=== PATIENT | female | born 1955 | race Caucasian/White ===

== ENCOUNTER 2017-06-05 12:21 | Emergency (ER) | payer BC ==
[2017-06-05] MEDS ORDERED: Ondansetron INJ* 2 MG/ML VIAL IV ONE (13:47)
[2017-06-05 14:18] LABS: Add Diff/Slide Review? Slide Review Added; Comments Flag Yes; Hematocrit 49 % (35-47); Hemoglobin 16.4 g/dl (12.0-16.0); Mean Corpuscular HGB Conc 34 g/dl (31-36); Mean Corpuscular Hemoglobin 29 pg (27-31); Mean Corpuscular Volume 86 fL (80-97); Mean Platelet Volume 7 um3 (7.4-10.4); Red Cell Distribution Width 13 % (10.5-15); White Blood Count 24.7 10^3/ul (3.5-10.8)
[2017-06-05 14:33] LABS: ALT 13 U/L (7-52); AST 18 U/L (13-39); Albumin 3.3 g/dL (3.2-5.2); Alkaline Phosphatase 51 U/L (34-104); Anion Gap 13 mmol/L (2-11); BUN/Creatinine Ratio 20.8 (8-20); Blood Urea Nitrogen 33 mg/dL (6-24); C Reactive Protein 250.05 mg/L (< 5.00); CO2 Carbon Dioxide 24 mmol/L (22-32); Chloride 96 mmol/L (101-111); EGFR African American 42.2 (>60); EGFR Non-African American 32.8 (>60); Glucose 137 mg/dL (70-100); Lipase < 10 U/L (11.0-82.0); Magnesium 1.8 mg/dL (1.9-2.7); Potassium 3.6 mmol/L (3.5-5.0); Sodium 133 mmol/L (133-145); Total Protein 6.3 g/dL (6.4-8.9)
[2017-06-05] MEDS: NS 0.9% 1000 ML* 2,000 ML IV ONE (14:48)
[2017-06-05] MEDS ORDERED: Iodixanol* (CONTRAST) 320 MG/ML 100 ML SDV IV ONE (16:13)
--- NOTE | 2017-06-05 16:51 | RAD ---
CLINICAL HISTORY: Left lower quadrant pain and emesis COMPARISON: None TECHNIQUE: Contrast enhanced CT examination of the abdomen and pelvis from the lung bases through the initial tuberosities. The patient received 85 mL Visipaque 320 intravenously prior to imaging.The patient received oral contrast as well prior to imaging. FINDINGS: VISUALIZED LUNG BASES: At the bilateral dependent portions of the lower lobes there are pleural-based linear densities. More superiorly the lungs are adequately aerated. There are small bibasilar pleural effusions. ABDOMEN AND PELVIS: The liver, spleen, pancreas and adrenal glands are grossly normal in appearance. The gallbladder is top normal in diameter measurement measuring 4.4 cm. Otherwise the gallbladder is normal in appearance. The kidneys are normal in appearance without focal mass, calcification or signs of hydronephrosis. The oral contrast as progressed as far as the rectum. The small and large bowel are not distended. There are rectosigmoid diverticula but no focal inflammatory change of the sigmoid colon. There is widespread peritoneal ascites including perihepatic fluid and perisplenic fluid. In addition to ascites scattered in the pelvis there is soft tissue density of the mesenteric fat consistent with the appearance of "omental caking". At the right of midline lower abdomen there is a partially cystic coarsely solid mass with enhancing components measuring approximately 8.6 x 9.8 cm in the axial plane and 9.3 cm in the cephalocaudal projection. The uterus is questionably identified in the sagittal plane with an AP dimension of 3.2 cm (sagittal image 76). Mixed attenuation tissue fills much of the pelvis. At the left inguinal ligament there is partially fluid partially soft tissue mass extending into the proximal portion of the ligament abutting the subcutaneous fat. The abdominal aorta and iliac arteries are normal in course and diameter. Degenerative changes include multilevel loss of intervertebral disc height involving the lower thoracic and lumbar spine.There are no sinister bone lesions. IMPRESSION: 1. The constellation of findings described above is most concerning for gynecologic malignancy, most likely ovarian, with widespread ascites and omental caking. 2. Although much of the gastrointestinal tract is surrounded by ascites and soft tissue density there are no pathologically dilated loops of bowel.
[2017-06-05 16:59] LABS: Urine Bacteria Absent (Absent); Urine Bilirubin 2+ (Negative); Urine Glucose 1+(50 mg/dL) (Negative); Urine Nitrite Negative (Negative)
--- NOTE | 2017-06-05 17:55 | ED ---
Kathi Cazares Edward, scribed for Cliff Wallis MD on 06/05/17 at 1338 . Abdominal Pain/Female - HPI Summary HPI Summary: 62 y/o female presents to the ED c/o diffuse ABD pain, mostly on the L side, starting 2 weeks ago. Pt states the pain is more of a discomfort now. Pt also c/ o ABD bloating. The pain is aggravated with food and water. Associated sx: severe N/V starting five days ago, decreased appetite, dehydrated, subjective fever and chills, intermittent fecal incontinence and diarrhea. No Sx. Pt was seen at PCP and given abx with no relief. PMHx HTN, HLD, asthma. - History of Current Complaint Chief Complaint: EDAbdPain Stated Complaint: DEHYDRATION,ABD PAIN LT SIDE Time Seen by Provider: 06/05/17 13:37 Hx Obtained From: Patient Onset/Duration: Lasting Days Timing: Constant Severity Currently: Moderate Pain Intensity: 6 Pain Scale Used: 0-10 Numeric Location: Diffuse - mostly on L side Character: Other: - discomfort now Aggravating Factor(s): Food Alleviating Factor(s): Nothing Associated Signs and Symptoms: Positive: Fever - subjective fever and chills, Decreased Appetite, Nausea, Vomiting, Diarrhea, Other: - dehydrated, fecal incontinence Allergies/Adverse Reactions: Allergies Allergy/AdvReac Type Severity Reaction Status Date / Time No Known Allergies Allergy Verified 06/05/17 12:37 PMH/Surg Hx/FS Hx/Imm Hx Previously Healthy: No Endocrine/Hematology History: Reports: Other Endocrine/Hematological Disorders - HLD Denies: Hx Diabetes Cardiovascular History: Reports: Hx Hypertension Respiratory History: Reports: Hx Asthma - Surgical History Surgery Procedure, Year, and Place: No ABD surgeries Infectious Disease History: No Infectious Disease History: Denies: Traveled Outside the [place] in Last 30 Days - Family History Known Family History: Negative: Cardiac Disease, Hypertension, Diabetes - Social History 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 Lives: With Family Review of Systems Positive: Fever - subjective, Chills - subjective, Other - dehydrated, decreased appetite Eyes: Negative ENT: Negative Cardiovascular: Negative Respiratory: Negative Positive: Abdominal Pain, Vomiting, Diarrhea, Nausea, Other - fecal incontinence Genitourinary: Negative Musculoskeletal: Negative Skin: Negative Neurological: Negative Psychological: Normal All Other Systems Reviewed And Are Negative: Yes Physical Exam Triage Information Reviewed: Yes Vital Signs On Initial Exam: Initial Vitals Temp Pulse Resp BP Pulse Ox 97.7 F 120 16 145/100 96 06/05/17 12:31 06/05/17 12:31 06/05/17 12:31 06/05/17 12:31 06/05/17 12:31 Vital Signs Reviewed: Yes Appearance: Positive: Well-Appearing, No Pain Distress Skin: Positive: Warm, Skin Color Reflects Adequate Perfusion, Dry Head/Face: Positive: Normal Head/Face Inspection Eyes: Positive: EOMI, [place] ENT: Positive: Other - oral mucosa dry Neck: Positive: Supple, Nontender Respiratory/Lung Sounds: Positive: Clear to Auscultation, Breath Sounds Present Cardiovascular: Positive: Tachycardia Abdomen Description: Positive: Nontender, Soft Bowel Sounds: Positive: Present Musculoskeletal: Positive: Normal, Strength/ROM Intact Neurological: Positive: Normal, Sensory/Motor Intact, Alert, Oriented to Person Place, Time Psychiatric: Positive: Affect/Mood Appropriate Diagnostics - Vital Signs Vital Signs Temp Pulse Resp BP Pulse Ox 06/05/17 12:31 97.7 F 120 16 145/100 96 - Laboratory Lab Results: Lab Results 06/05/17 06/05/17 06/05/17 Range/Units 14:05 14:05 14:05 WBC 24.7 H (3.5-10.8) 10^3/ul RBC 5.70 H (4.0-5.4) 10^6/ul Hgb 16.4 H (12.0-16.0) g/dl Hct 49 H (35-47) % MCV 86 (80-97) fL MCH 29 (27-31) pg MCHC 34 (31-36) g/dl RDW 13 (10.5-15) % Plt Count 511 H (150-450) 10^3/ul MPV 7 L (7.4-10.4) um3 Neut % (Auto) 87.9 H (38-83) % Lymph % (Auto) 4.7 L (25-47) % [place] % (Auto) 7.1 (1-9) % Eos % (Auto) 0.1 (0-6) % Baso % (Auto) 0.2 (0-2) % Absolute Neuts (auto) 21.8 H (1.5-7.7) 10^3/ul Absolute Lymphs (auto) 1.2 (1.0-4.8) 10^3/ul Absolute Monos (auto) 1.8 H (0-0.8) 10^3/ul Absolute Eos (auto) 0 (0-0.6) 10^3/ul Absolute Basos (auto) 0 (0-0.2) 10^3/ul Absolute Nucleated RBC 0.01 10^3/ul Nucleated RBC % 0 INR (Anticoag Therapy) 1.37 H (0.89-1.11) APTT 30.0 (26.0-36.3) seconds Sodium 133 (133-145) mmol/L Potassium 3.6 (3.5-5.0) mmol/L Chloride 96 L (101-111) mmol/L Carbon Dioxide 24 (22-32) mmol/L Anion Gap 13 H (2-11) mmol/L BUN 33 H (6-24) mg/dL Creatinine 1.59 H (0.51-0.95) mg/dL Est GFR ( Amer) 42.2 (>60) Est GFR (Non-Af Amer) 32.8 (>60) BUN/Creatinine Ratio 20.8 H (8-20) Glucose 137 H (70-100) mg/dL Lactic Acid (0.5-2.0) mmol/L Calcium 9.0 (8.6-10.3) mg/dL Magnesium 1.8 L (1.9-2.7) mg/dL Total Bilirubin 0.40 (0.2-1.0) mg/dL AST 18 (13-39) U/L ALT 13 (7-52) U/L Alkaline Phosphatase 51 (34-104) U/L C-Reactive Protein 250.05 H (< 5.00) mg/L Total Protein 6.3 L (6.4-8.9) g/dL Albumin 3.3 (3.2-5.2) g/dL Globulin 3.0 (2-4) g/dL Albumin/Globulin Ratio 1.1 (1-3) Lipase < 10 L (11.0-82.0) U/L Urine Color Urine Appearance Urine pH (5-9) Ur Specific [place] (1.010-1.030) Urine Protein (Negative) Urine Ketones (Negative) Urine Blood (Negative) Urine Nitrate (Negative) Urine Bilirubin (Negative) Urine Urobilinogen (Negative) Ur Leukocyte Esterase (Negative) Urine WBC (Auto) (Absent) Urine RBC (Auto) (Absent) Ur Squamous Epith Cells (Absent) Calcium Oxalate Crystal (Absent) Urine Bacteria (Absent) Urine Glucose (Negative) 06/05/17 06/05/17 Range/Units 14:05 15:50 WBC (3.5-10.8) 10^3/ul RBC (4.0-5.4) 10^6/ul Hgb (12.0-16.0) g/dl Hct (35-47) % MCV (80-97) fL MCH (27-31) pg MCHC (31-36) g/dl RDW (10.5-15) % Plt Count (150-450) 10^3/ul MPV (7.4-10.4) um3 Neut % (Auto) (38-83) % Lymph % (Auto) (25-47) % [place] % (Auto) (1-9) % Eos % (Auto) (0-6) % Baso % (Auto) (0-2) % Absolute Neuts (auto) (1.5-7.7) 10^3/ul Absolute Lymphs (auto) (1.0-4.8) 10^3/ul Absolute Monos (auto) (0-0.8) 10^3/ul Absolute Eos (auto) (0-0.6) 10^3/ul Absolute Basos (auto) (0-0.2) 10^3/ul Absolute Nucleated RBC 10^3/ul Nucleated RBC % INR (Anticoag Therapy) (0.89-1.11) APTT (26.0-36.3) seconds Sodium (133-145) mmol/L Potassium (3.5-5.0) mmol/L Chloride (101-111) mmol/L Carbon Dioxide (22-32) mmol/L Anion Gap (2-11) mmol/L BUN (6-24) mg/dL Creatinine (0.51-0.95) mg/dL Est GFR ( Amer) (>60) Est GFR (Non-Af Amer) (>60) BUN/Creatinine Ratio (8-20) Glucose (70-100) mg/dL Lactic Acid 3.4 H* (0.5-2.0) mmol/L Calcium (8.6-10.3) mg/dL Magnesium (1.9-2.7) mg/dL Total Bilirubin (0.2-1.0) mg/dL AST (13-39) U/L ALT (7-52) U/L Alkaline Phosphatase (34-104) U/L C-Reactive Protein (< 5.00) mg/L Total Protein (6.4-8.9) g/dL Albumin (3.2-5.2) g/dL Globulin (2-4) g/dL Albumin/Globulin Ratio (1-3) Lipase (11.0-82.0) U/L Urine Color [place] Urine Appearance Turbid Urine pH 5.0 (5-9) Ur Specific [place] 1.029 (1.010-1.030) Urine Protein 2+(100 mg/dl) H (Negative) Urine Ketones Trace H (Negative) Urine Blood Negative (Negative) Urine Nitrate Negative (Negative) Urine Bilirubin 2+ H (Negative) Urine Urobilinogen Negative (Negative) Ur Leukocyte Esterase 2+ H (Negative) Urine WBC (Auto) 3+(>20/hpf) H (Absent) Urine RBC (Auto) Absent (Absent) Ur Squamous Epith Cells Present H (Absent) Calcium Oxalate Crystal Present H (Absent) Urine Bacteria Absent (Absent) Urine Glucose 1+(50 mg/dl) H (Negative) Result Diagrams: 06/05/17 14:05 06/05/17 14:05 Lab Statement: Any lab studies that have been ordered have been reviewed, and results considered in the medical decision making process. - CT ABD/PEL CT CT Interpretation: Positive (See Comments) - 1. The constellation of findings described above is most concerning for gynecologic malignancy, most likely ovarian, with widespread ascites and omental caking. 2. Although much of the gastrointestinal tract is surrounded by ascites and soft tissue density there are no pathologically dilated loops of bowel. CT Interpretation Completed By: Radiologist - ED PHYSICIAN REVIEWS AND AGREES Abdominal Pain Fem Course/Dx - Course Course Of Treatment: DISCUSSED RESULTS WITH DR BROWN AND THE PATIENT. PATIENT DECLINES ADMISSION. DR BROWN AGREED TO MEET WITH THE PATIENT IN HIS OFFICE TOMORROW, 06/06/17, AT 5PM. F/U DR BROWN AND PMD; RETURN IF WORSE. - Diagnoses Provider Diagnoses: Abdominal pain, Dehydration, Nausea vomiting and diarrhea, Abdominal mass - Provider Notifications Discussed Care Of Patient With: Gurpreet Brown Time Discussed With Above Provider: 17:30 Discharge - Discharge Plan Condition: Stable Disposition: HOME Patient Education Materials: Dehydration (ED), Acute Nausea and Vomiting (ED), Acute Diarrhea (ED), Abdominal Pain (ED) Referrals: Christiana Austin MD [Primary Care Provider] - Additional Instructions: FOLLOW UP DR BROWN, HEMATOLOGY/ONCOLOGY. CALL EARLY TOMORROW MORNING TO ARRANGE THE APPOINTMENT. DR BROWN SAID HE COULD SEE YOU IN HIS OFFICE AT 5PM TOMORROW. YOUR STOOL RESULTS ARE PENDING. DISCUSS THESE RESULTS WITH DR BROWN. CONTINUE THE FLAGYL DIRECTED. RETURN TO THE EMERGENCY DEPARTMENT FOR ANY WORSENING OF YOUR CONDITION; PAIN, VOMITING, DEHYDRATION, YOU FEEL ILL OR QUESTIONS OR CONCERNS. The documentation as recorded by the Kathi boggs Edward accurately reflects the service I personally performed and the decisions made by me, Cliff Wallis MD.
[2017-06-05 18:12] VITALS: BP 132/88
== END 2017-06-05 16:45 | disposition home or self-care (01) ==
LOC: ED 12:21
DX: R10.84 Generalized abdominal pain (principal); E86.0 Dehydration; R11.2 Nausea with vomiting, unspecified; R19.7 Diarrhea, unspecified; R50.9 Fever, unspecified; R19.03 Right lower quadrant abdominal swelling, mass and lump; K57.30 Diverticulosis of large intestine without perforation or abscess without bleeding; E78.5 Hyperlipidemia, unspecified; I10 Essential (primary) hypertension; J45.909 Unspecified asthma, uncomplicated
CPT/HCPCS: 36415; 74177; 80053; 81003; 81015; 82270; 83605; 83630; 83690; 83735; 85025; 85610; 85730; 86140; 86304; 87040; 87086; 87493; 96361; 96374; 99283; J2405; Q9967

== ENCOUNTER 2017-06-09 16:56 | Inpatient (IN) | payer BC ==
[2017-06-09 18:11] LABS: Hematocrit 49 % (35-47); Hemoglobin 16.5 g/dl (12.0-16.0); Mean Corpuscular HGB Conc 34 g/dl (31-36); Mean Corpuscular Hemoglobin 29 pg (27-31); Mean Corpuscular Volume 85 fL (80-97); Mean Platelet Volume 7 um3 (7.4-10.4); Red Blood Count 5.78 10^6/ul (4.0-5.4); Red Cell Distribution Width 13 % (10.5-15); White Blood Count 35.4 10^3/ul (3.5-10.8)
[2017-06-09 18:12] LABS: Add Diff/Slide Review? Slide Review Added; Comments Flag Yes
[2017-06-09 18:20] LABS: Albumin 3.1 g/dL (3.2-5.2); BUN/Creatinine Ratio 12.8 (8-20); Calcium 9.4 mg/dL (8.6-10.3); EGFR African American 12.4 (>60); EGFR Non-African American 9.6 (>60); Potassium 4.3 mmol/L (3.5-5.0); Total Bilirubin 0.4 mg/dL (0.2-1.0); Total Protein 6.1 g/dL (6.4-8.9)
[2017-06-09 18:33] LABS: Immature Granulocytes 12 % (0-9); Metamyelocytes % 2 % (0-2); Neutrophil % 80 % (38-83); RBC Morphology Normal (Normal)
[2017-06-09] MEDS ORDERED: Morphine INJ* 4 MG/ML 1 ML CARPUJECT IV ONE ×2 (19:46→21:51)
[2017-06-09] MEDS ORDERED: Metoclopramide IV* 5 MG/ML 2 ML VIAL IV SLOW PU ONE (19:47)
[2017-06-09] MEDS ORDERED: Ondansetron INJ* 2 MG/ML VIAL IV ONE ×2 (20:20→21:51)
[2017-06-09] MEDS ORDERED: Ondansetron INJ* 2 MG/ML VIAL ONE (20:20)
[2017-06-09] MEDS: NS 0.9% 1000 ML* 2,000 ML IV ONE (20:22)
[2017-06-09 20:45] LABS: C Reactive Protein 380.93 mg/L (< 5.00)
[2017-06-09 21:11] LABS: PCO2 Arterial 32 mmHg (35-45)
[2017-06-09] MEDS ORDERED: Vancomycin(*) 1,000 MG in NS 0.9% 250 ML* 250 ML IVPB ONE (21:24)
[2017-06-09] MEDS ORDERED: Piperacillin/Tazobac ADVAN(*) 3.375 GM in NS 0.9% 100 ML* 100 ML IVPB ONE (21:24)
--- NOTE | 2017-06-09 21:30 | RAD ---
INDICATION: Vomiting, dehydration and weakness COMPARISON: None. TECHNIQUE: Single AP portable view of the chest was obtained. FINDINGS: Image quality is compromised due to the relative inferiority of a portable chest x-ray. The heart and mediastinum exhibit normal size and contour. There is density obscuring the left hemidiaphragm and costophrenic angle. There is mild costophrenic angle blunting on the right. More superiorly the lungs are adequately aerated. Visualized bones are normal for the patient's age. IMPRESSION: Left greater than right bibasilar pleural effusions and/or consolidation.
--- NOTE | 2017-06-09 21:37 | RAD ---
CLINICAL HISTORY: Abdominal pain in a woman recently diagnosed with ovarian cancer. COMPARISON: CT abdomen pelvis dated June 05, 2017. TECHNIQUE: Noncontrast CT examination of the abdomen and pelvis from the lung bases through the initial tuberosities. FINDINGS: VISUALIZED LUNG BASES: There has been interval increase in the size of the bibasilar pleural effusions, larger on the left than the right. There is compressive atelectasis at the bilateral lung bases with air bronchograms at the medial portion of the left lower lobe. ABDOMEN AND PELVIS: Evaluation of the solid organs and vasculature is limited without intravenous contrast. Similar to the prior CT the abdomen there is peritoneal ascites including perihepatic and perisplenic fluid, slightly increased from the prior CT examination. More inferiorly there is density involving the peritoneal fat diffusely which is most consistent with omental caking. The large mixed attenuation partially cystic mass in the right abdomen is unchanged in size from the previous CT examination. The masses in the abdomen and pelvis are less well depicted relative to the previous CT examination without IV contrast. Otherwise, the liver, spleen, pancreas and adrenal glands are grossly normal in appearance. The gallbladder is normal. The kidneys are normal in appearance without focal mass, calcification or signs of hydronephrosis. Evaluation of the gastrointestinal tract is limited without oral contrast. There is oral contrast seen in the colon presumably from the CT examination 4 days earlier. There is no pathologic dilatation of the small or large bowel. There are numerable rectosigmoid diverticula similar to the prior CT examination. There is no gross retroperitoneal or mesenteric lymphadenopathy. The pelvic viscera is normal in appearance. The abdominal aorta and iliac arteries are normal in course and diameter. Degenerative changes include multilevel loss of intervertebral disc height involving the lower thoracic and lumbar spine.There are no sinister bone lesions. IMPRESSION: 1. There has been interval increase in the size of the bilateral pleural effusions and peritoneal ascites. 2. Again seen is partially cystic mixed attenuation mass in the right abdomen and pelvis similar in size to the prior CT examination. The mass is less well evaluated on this noncontrast CT examination relative to the prior CT examination.
--- NOTE | 2017-06-09 21:54 | ED ---
Sudha Cazares SooYoung, scribed for Tommy Fowler MD on 06/09/17 at 1927 . GI/ HPI - HPI Summary HPI Summary: A 62 y/o F presents to ED with c/o diffuse abd pain onset a few weeks ago at the beginning of May. Pt last seen in ED on 06/05/[address], dx: Stage III Ovarian CA. She met with an oncologist on 06/06 and had a biopsy on 06/07. Associated sx: nausea, decreased oral intake, dyspnea onset 2-3 days ago, weakness. Denies diarrhea. She denies taking any medications at home. 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 - History of Current Complaint Chief Complaint: EDNauseaVomitDiarrh Time Seen by Provider: 06/09/17 19:24 Stated Complaint: VOMITING,DEHYDRATION,WEAKNESS Hx Obtained From: Patient Onset/Duration: Started Weeks Ago, Still Present Current Severity: Moderate Pain Intensity: 6 - out of 10 Location of Pain: Diffuse Associated Signs and Symptoms: Positive: Nausea, Abdominal Pain - diffuse, Other : - pos: decreased oral intake, dyspnea. Negative: Diarrhea - Allergy/Home Medications Allergies/Adverse Reactions: Allergies Allergy/AdvReac Type Severity Reaction Status Date / Time Ciprofloxacin AdvReac Intermediate Vomiting Verified 06/07/17 14:29 Codeine AdvReac Intermediate Vomiting Verified 06/07/17 14:29 PMH/Surg Hx/FS Hx/Imm Hx Previously Healthy: No Endocrine/Hematology History: Reports: Other Endocrine/Hematological Disorders - HLD Denies: Hx Diabetes Cardiovascular History: Reports: Hx Hypertension Respiratory History: Reports: Hx Asthma History: Denies: Hx Renal Disease - Surgical History Surgery Procedure, Year, and Place: No ABD surgeries Infectious Disease History: No Infectious Disease History: Denies: Traveled Outside the [place] in Last 30 Days - Family History Known Family History: Negative: Cardiac Disease, Hypertension, Diabetes - Social History Occupation: Employed Full-time Lives: Alone Alcohol Use: Occasionally Hx Substance Use: No Substance Use Type: Reports: None Hx Tobacco Use: No Smoking Status (MU): Never Smoked Tobacco Review of Systems Positive: Other - dyspnea Positive: Abdominal Pain - diffuse, Nausea, Other - decreased oral intake. Negative: Diarrhea All Other Systems Reviewed And Are Negative: Yes Physical Exam - Summary Physical Exam Summary: VITAL SIGNS: Reviewed. GENERAL: Patient is an ill-looking FEMALE who appears uncomfortable on the stretcher. Pt is lethargic. Patient is not in any acute respiratory distress. HEAD AND FACE: No signs of trauma. No ecchymosis, hematomas or skull depressions. No sinus tenderness. EYES: PERRLA, EOMI x 2, no injected conjunctiva, no nystagmus. EARS: Hearing grossly intact. Ear canals and tympanic membranes are within normal limits. MOUTH: Oropharynx is within normal limits. NECK: Supple, trachea is midline, no adenopathy, no JVD, no carotid bruit, no c- spine tenderness, neck with full ROM. CHEST: Symmetric, no tenderness at palpation LUNGS: Clear to auscultation bilaterally. No wheezing or crackles. Decreased breath sounds bilaterally. CVS: Tachycardic, S1 and S2 present, no murmurs or gallops appreciated. ABDOMEN: Soft. Abd has diffuse tenderness. No signs of distention. No rebound, no guarding, and no masses palpated. Bowel sounds are normal. EXTREMITIES: FROM in all major joints, no edema, no cyanosis, no clubbing. NEURO: Alert and oriented x 3. No acute neurological deficits. Speech is normal and follows commands. SKIN: Dry and warm Triage Information Reviewed: Yes Vital Signs On Initial Exam: Initial Vitals Temp Pulse Resp BP Pulse Ox 97.9 F 117 22 115/80 93 06/09/17 17:01 06/09/17 17:01 06/09/17 17:01 06/09/17 17:01 06/09/17 17:01 Vital Signs Reviewed: Yes Diagnostics - Vital Signs Vital Signs Temp Pulse Resp BP Pulse Ox 06/09/17 17:01 97.9 F 117 22 115/80 93 - Laboratory Lab Results: Lab Results 06/09/17 06/09/17 06/09/17 Range/Units 17:45 17:45 17:45 WBC 35.4 H (3.5-10.8) 10^3/ul RBC 5.78 H (4.0-5.4) 10^6/ul Hgb 16.5 H (12.0-16.0) g/dl Hct 49 H (35-47) % MCV 85 (80-97) fL MCH 29 (27-31) pg MCHC 34 (31-36) g/dl RDW 13 (10.5-15) % Plt Count 619 H D (150-450) 10^3/ul MPV 7 L (7.4-10.4) um3 Immature Gran % (Auto) 12 H (0-9) % Neut % (Auto) 89.9 H (38-83) % Lymph % (Auto) 3.5 L (25-47) % [place] % (Auto) 6.4 (1-9) % Eos % (Auto) 0 (0-6) % Baso % (Auto) 0.2 (0-2) % Absolute Neuts (auto) 31.8 H (1.5-7.7) 10^3/ul Absolute Lymphs (auto) 1.3 (1.0-4.8) 10^3/ul Absolute Monos (auto) 2.3 H (0-0.8) 10^3/ul Absolute Eos (auto) 0 (0-0.6) 10^3/ul Absolute Basos (auto) 0.1 (0-0.2) 10^3/ul Absolute Nucleated RBC 0.02 10^3/ul Neutrophils % 80 (38-83) % Band Neutrophils % 10 H (0-8) % Lymphocytes % 1 L (25-47) % Monocytes % 7 (0-13) % Metamyelocytes % 2 (0-2) % Nucleated RBC % 0.1 Normal RBC Morphology Normal (Normal) INR (Anticoag Therapy) 1.32 H (0.89-1.11) Sodium 126 L (133-145) mmol/L Potassium 4.3 (3.5-5.0) mmol/L Chloride 90 L (101-111) mmol/L Carbon Dioxide 15 L (22-32) mmol/L Anion Gap 21 H (2-11) mmol/L BUN 59 H (6-24) mg/dL Creatinine 4.60 H (0.51-0.95) mg/dL Est GFR ( Amer) 12.4 (>60) Est GFR (Non-Af Amer) 9.6 (>60) BUN/Creatinine Ratio 12.8 (8-20) Glucose 146 H (70-100) mg/dL Calcium 9.4 (8.6-10.3) mg/dL Total Bilirubin 0.40 (0.2-1.0) mg/dL AST 22 (13-39) U/L ALT 8 (7-52) U/L Alkaline Phosphatase 61 (34-104) U/L Total Protein 6.1 L (6.4-8.9) g/dL Albumin 3.1 L (3.2-5.2) g/dL Globulin 3.0 (2-4) g/dL Albumin/Globulin Ratio 1.0 (1-3) Lipase 17 (11.0-82.0) U/L Result Diagrams: 06/09/17 17:45 06/09/17 17:45 Lab Statement: Any lab studies that have been ordered have been reviewed, and results considered in the medical decision making process. - Radiology CXR Xray Interpretation: Positive (See Comments) - IMPRESSION: Left greater than right bibasilar pleural effusions and/or consolidation. ED physician has reviewed this radiology report and agrees. Radiology Interpretation Completed By: Radiologist - CT A/P CT CT Interpretation: Positive (See Comments) - IMPRESSION: 1. There has been interval increase in the size of the bilateral pleural effusions and peritoneal ascites. 2. Again seen is partially cystic mixed attenuation mass in the right abdomen and pelvis similar in size to the prior CT examination. The mass is less well evaluated on this noncontrast CT examination relative to the prior CT examination. ED physician has reviewed this radiology report and agrees. CT Interpretation Completed By: Radiologist Re-Evaluation - Re-Evaluation 1 Re-Evaluation Time: 21:23 Change: Improved - mildly Comment: Pt states her abd pain has mildly improved. Pt is unsure if shes had a fever this week, but she does state she had chills. 2 Re-Evaluation Time: 21:47 Change: Unchanged Comment: Discussing plans to admit pt, pt is aggreable with this plan. GIGU Course/Dx - Course Course Of Treatment: A 62 y/o F presents to ED with c/o diffuse abd pain onset a few weeks ago at the beginning of May. Pt last seen in ED on 06/05/[address], dx: Stage III Ovarian CA. She met with an oncologist on and had a biopsy on 06/07. Associated sx: nausea, decreased oral intake, dyspnea onset 2-3 days ago, weakness. Denies diarrhea. She denies taking any medications at home. 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 Pt given fluids, morphine, zofran in ED. Lab results show WBC is 35.4, lactic acid is 5.0, CRP is 380.9, INR is 1.32. All blood gas levels were low. CXR shows "Left greater than right bibasilar pleural effusions and/or consolidation.". Consulted with Dr. Decker who will admit pt to ICU. - Diagnoses Provider Diagnoses: metastatic ovarian cancer, Acute renal failure, Metabolic acidosis, ascites and pleural effusion, possible sepsis, Leukocytosis - Physician Notifications Discussed Care Of Patient With: Reji Decker - hospitalist Time Discussed With Above Provider: 21:45 Instructed by Provider To: Admit As Inpatient - to ICU - Critical Care Time Critical Care Time: 30-74 min - 40 minutes Discharge - Discharge Plan Condition: Stable Disposition: ADMITTED TO [facility] Discharge Disposition Comment: ICU Referrals: Christiana Austin MD [Primary Care Provider] - The documentation as recorded by the Sudha boggs SooYoung accurately reflects the service I personally performed and the decisions made by me, Tommy Fowler MD.
[2017-06-09] MEDS ORDERED: Metoclopramide IV* 5 MG/ML 2 ML VIAL IV PRN (22:24)
[2017-06-09] MEDS ORDERED: PROCHLORPERAZINE INJ 5 MG/ML 2 ML VIAL ONE (22:28)
[2017-06-09] MEDS: PROCHLORPERAZINE INJ 5 MG/ML 2 ML VIAL IV PRN (22:33)
[2017-06-09] MEDS ORDERED: Acetaminophen TAB* 325 MG PO PRN (22:45)
[2017-06-09] MEDS ORDERED: Ondansetron INJ* 2 MG/ML VIAL IV PRN (22:47)
[2017-06-09] MEDS ORDERED: Vancomycin per Pharmacy* NOTE FOLLOW UP SCH (23:00)
[2017-06-09] MEDS ORDERED: Zosyn per Pharmacy* NOTE FOLLOW UP SCH (23:00)
--- NOTE | 2017-06-09 23:09 | HP ---
H&P (Free Text) History and Physical: Mrs Guerrero is an unfortunate 62YO female recently diagnosed with advanced ovarian CA with week of increasing abdominal complaints. She will be admitted for IVFs, IV ABX, oncology consultation, and close monitoring in the ICU.
[2017-06-10] MEDS: NS 0.9% 1000 ML* 1,000 ML IV SCH ×2 (00:08→04:22)
--- NOTE | 2017-06-10 00:59 | HP ---
CC: Dr. Christiana Austin * HISTORY AND PHYSICAL: DATE OF ADMISSION: 06/09/17 PRIMARY CARE PHYSICIAN: Dr. Christiana Austin. ATTENDING PHYSICIAN: Reji Decker MD* (dictation provided by Julissa Barraza NP) CHIEF COMPLAINT: Nausea and vomiting. HISTORY OF PRESENT ILLNESS: Ms. Guerrero is a 62-year-old female with a recent presentation to the emergency room on 06/05/17 for generally feeling unwell with some nausea, vomiting, and lower abdominal pain. At that time she had a CT of the abdomen and pelvis which showed constellation of findings described as most concerning for gynecological malignancy, most likely ovarian, with widespread ascites and omental caking. The patient did not want to be admitted to the hospital at that time. She had grossly abnormal labs with a white blood cell count of 29.1, hemoglobin of 16.1, a platelet count of 647, a creatinine of 1.92, and a BUN of 42. Her CRP was 250.05. She opted to leave from the emergency room and was seen the following day by Dr. Brown from oncology. I refer you to his consultation note for complete details, but in brief he agreed that this is likely a pelvic malignancy and recommended that she go on for a CT- guided biopsy. This biopsy was performed on 06/07/17, the results are pending. Ms. Guerrero since then has continued to feel quite poorly. She has nausea, vomiting, and lower abdominal pain with generalized weakness. 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 Today, she had a repeat CT abdomen and pelvis which showed interval increase in the size of the bilateral pleural effusions and peritoneal ascites again with a partially cystic mass in the right abdomen and pelvis. Her labs had significantly worsened with a white blood cell count now of 35.4, hemoglobin 16.5, platelet count 619,000. She is hyponatremic with a sodium of 126. She is in acute renal failure with a creatinine to 4.60, BUN of 59, her lactic acid is 5.0. She is afebrile, she is mildly tachycardic with a heart rate running about 100, her blood pressure is stable running systolically about 140s to 160s. She has O2 saturation of 90% on room air, responded well to 2 L nasal cannula. PAST MEDICAL HISTORY: 1. Hypertension, not on any medications. 2. Hyperlipidemia. 3. Childhood asthma. MEDICATIONS: 1. Tylenol p.r.n. 2. Albuterol inhaler p.r.n. 3. Ondansetron 8 mg p.o. q.6 hours p.r.n. ALLERGIES: CIPROFLOXACIN and CODEINE. FAMILY HISTORY: The patient's elderly mother is here in the emergency room today; she is in her 90s. Her father of old age. SOCIAL HISTORY: No report of tobacco use. The patient states she drinks very rarely. No report of illicit drug use. She lives with her mom. She states that her niece, Tomeka, would be the healthcare proxy. REVIEW OF SYSTEMS: Constitutional: No fevers, no chills, no unintended weight loss. Cardiac: No chest pain, no edema. Respiratory: No cough, no hemoptysis. Positive for shortness of breath. GI: Positive for nausea, vomiting. No diarrhea. Positive for lower abdominal pain. : No gross hematuria or dysuria. Neuro: No focal weakness or sensory loss. Eyes: No visual complaints. ENT: No dysphagia. Musculoskeletal: No arthralgias or myalgias. Skin: No rashes or lesions. Psych: No depression or anxiety. PHYSICAL EXAMINATION GENERAL: Ms. Guerrero appears uncomfortable, but she is in no acute distress. VITAL SIGNS: Temperature 97.9, heart rate 103, respiratory rate 16, O2 saturation 94% on 2 L nasal cannula, and blood pressure 147/74. LUNGS: Clear to auscultation bilaterally with no accessory muscle use and good aeration. HEART: S1 and S2. No murmur, rub, or gallop and regular. ABDOMEN: Soft. There is mild generalized tenderness. Bowel sounds are positive, it is distended. EXTREMITIES: No cyanosis or edema. Skin is intact. NEUROLOGIC: She is alert, she is oriented x3, she moves all extremities equally. There is no fascial asymmetry or focal weakness. Extraocular movements are intact. LABORATORY DATA: Sodium 126, potassium 4.3, chloride 90, serum bicarbonate 15 , BUN 59, creatinine 4.60, glucose 146, lactic acid 5.0, CRP 380.93, WBC of 35.4 , hemoglobin 16.5, hematocrit 49, platelet count 619,000. INR 1.32. ABG says the pH is 7.26, pCO2 of 32, pO2 of 63, bicarbonate 15.8. Abdomen and pelvis CT is read as follows: There is an interval increase in the size of the bilateral pleural effusions and peritoneal ascites. Again seen is partially cystic mass, mixed attenuation mass in the right abdomen and pelvis similar to the size of the prior CT examination. Chest x-ray shows left greater than right bibasilar pleural effusion and/or consolidation. ASSESSMENT: Ms. Guerrero is a 62-year-old female with a recent diagnosis of pelvic mass, suspected to be a possible ovarian cancer, who presents today to the hospital with nausea, vomiting, and abdominal pain, found to have concern for possible infection with a persistently elevated white blood cell count and bandemia and acute renal failure. Our plans are for inpatient admission to the ICU as I expect the length of stay to be greater than 2 days for the followin. Sepsis: Patient has an elevated WBC with concern for possible infection in addition to her suspected pelvic malignancy. She is afebrile. At this point, I see no locus of infection but plan to continue vancomycin and zosyn started in the ED until oncology can follow up with patient in AM. Blood cultures have been sent. 2. Nausea, vomiting, and abdominal pain. I suspect this is all secondary to her underlying pelvic mass. I have consulted with Dr. Reed over the phone and he will be seeing the patient tomorrow and taking over her care. Plan for symptomatic control of her nausea with Zofran and Compazine. She will have IV fluids. 3. Acute renal failure. The patient has had 2 L of IV fluids in the emergency room. We will continue with 2 additional liters at 250 mL per hour and then reassess in the a.m. regarding additional fluid needs. We will recheck her creatinine and BUN tomorrow. We will dose all medications renally. 4. DVT prophylaxis with heparin subcu. 5. Code status is full code. 6. Approximately 60 minutes were spent in the admission of this patient, more than half the time spent with the patient at the bedside reviewing the events leading up to this hospitalization, performing the physical examination, and reviewing the plan of care. JULISSA BARRAZA, FAIZAN [id number]/[facility] #: [id number] JOAQUIN
[2017-06-10] MEDS ORDERED: CMCS Melatonin (NF) 3 MG TAB PO PRN (02:19)
[2017-06-10 03:04] LABS: Urine Bacteria Absent (Absent); Urine Bilirubin 1+ (Negative); Urine Glucose 1+(50 mg/dL) (Negative); Urine Nitrite Negative (Negative)
[2017-06-10] MEDS: Morphine INJ* 4 MG/ML 1 ML CARPUJECT IV PRN ×3 (03:51→09:09)
[2017-06-10 05:38] LABS: Hematocrit 43 % (35-47); Hemoglobin 14.2 g/dl (12.0-16.0); Mean Corpuscular HGB Conc 33 g/dl (31-36); Mean Corpuscular Hemoglobin 29 pg (27-31); Mean Corpuscular Volume 86 fL (80-97); Mean Platelet Volume 7 um3 (7.4-10.4); Red Blood Count 4.95 10^6/ul (4.0-5.4); Red Cell Distribution Width 13 % (10.5-15); White Blood Count 39.7 10^3/ul (3.5-10.8)
[2017-06-10 05:43] LABS: Comments Flag Yes
[2017-06-10 05:44] LABS: Add Diff/Slide Review? Manual Diff Added
[2017-06-10 05:54] LABS: BUN/Creatinine Ratio 13.4 (8-20); Calcium 8.4 mg/dL (8.6-10.3); EGFR African American 12.5 (>60); EGFR Non-African American 9.7 (>60); Potassium 4.6 mmol/L (3.5-5.0)
[2017-06-10] MEDS: Heparin VIAL(*) 5000 UNITS/ML VIAL (FIVE THOUSAND) SUBCUT SCH ×2 (06:25→15:18)
[2017-06-10 06:38] LABS: Immature Granulocytes 1 % (0-9); Neutrophil % 88 % (38-83)
[2017-06-10 06:40] LABS: Add Path Review? YES
[2017-06-10] MEDS ORDERED: Sodium Bicarbonate 8.4% IV* 150 MEQ in D5W 1000 ML BAG* 1,000 ML IVPB SCH (07:30)
[2017-06-10] MEDS: NS 0.9% 1000 ML* 2,000 ML IV ONE ×2 (08:01→08:57)
[2017-06-10] MEDS ORDERED: Morphine INJ* 4 MG/ML 1 ML CARPUJECT IV ONE (09:00)
[2017-06-10] MEDS ORDERED: Influenza VAC *QUAD* 2017-18* 0.5 ML SYRINGE IM ONE (09:00)
[2017-06-10] MEDS ORDERED: ZOSYN 3.375 GM Q12H per EXTENDED INFUSION IVPB SCH ×2 (10:00)
--- NOTE | 2017-06-10 10:15 | PN ---
Progress Note - Progress Note Date of Service: 06/10/17 SOAP: Subjective: []She is short of breath, struggling to speak. Pain in abd, she is aware and understanding of situation, able to express her wishes clearly. Acetaminophen (Tylenol Tab*) 650 mg PO Q6H PRN PRN Reason: nausea Heparin Sodium (Porcine) (Heparin Vial(*)) 5,000 units SUBCUT Q8HR [facility] Last Admin: 06/10/17 06:25 Dose: 5,000 units Piperacillin Sod/Tazobactam (Sod 3.375 gm/ Sodium Chloride) 100 mls @ 25 mls/ hr IVPB Q12H [facility] Last Admin: 06/10/17 09:41 Dose: 25 mls/hr Vancomycin HCl 750 mg/ Sodium (Chloride) 250 mls @ 166.667 mls/hr IVPB ONCE ONE Stop: 06/10/17 19:29 Lactated Ringer's (Lactated Ringers 1000 Ml Bag*) 1,000 mls @ 100 mls/hr IV PER RATE [facility] Melatonin (Melatonin (Nf)) 3 mg PO BEDTIME PRN PRN Reason: INSOMNIA Last Admin: 06/10/17 02:27 Dose: 3 mg Morphine Sulfate (Morphine Inj (Syringe)*) 4 mg IV Q2H PRN PRN Reason: PAIN Last Admin: 06/10/17 09:09 Dose: 4 mg Ondansetron HCl (Zofran Inj*) 4 mg IV Q6H PRN PRN Reason: NAUSEA Pharmacy Consult (Zosyn Per Pharmacy*) 1 note FOLLOW UP .ZOSYN PER PHARMACY [facility] Pharmacy Consult (Vancomycin Per Pharmacy*) 1 note FOLLOW UP .VANC PER PHARMACY [facility] Pharmacy Consult (Vancomycin Random Level*) 1 note FOLLOW UP 0600 ONE Stop: 06/11/17 06:01 Prochlorperazine Edisylate (Compazine Inj*) 5 mg IV Q6H PRN PRN Reason: NAUSEA/VOMITING Last Admin: 06/09/17 22:33 Dose: 5 mg Objective: [] Vital Signs Temp Pulse Resp BP Pulse Ox 97.5 F 102 24 147/79 97 06/10/17 09:00 06/10/17 09:00 06/10/17 09:09 06/10/17 09:00 06/10/17 09:00 HEENT - Pale, dry, no thrush or oral lesions. Decreased BS, shallow, no wheezing RRR S1S2 Abd - distended, diffuse tender, hard, no fluid wave. decreased BS. Neuro - AAO x 3. Able to understand her decisions. Laboratory Results - last 24 hr 06/09/17 06/09/17 06/09/17 17:45 17:45 17:45 WBC 35.4 H RBC 5.78 H Hgb 16.5 H Hct 49 H MCV 85 MCH 29 MCHC 34 RDW 13 Plt Count 619 H D MPV 7 L Immature Gran % (Auto) 12 H Neut % (Auto) 89.9 H Lymph % (Auto) 3.5 L [place] % (Auto) 6.4 Eos % (Auto) 0 Baso % (Auto) 0.2 Absolute Neuts (auto) 31.8 H Absolute Lymphs (auto) 1.3 Absolute Monos (auto) 2.3 H Absolute Eos (auto) 0 Absolute Basos (auto) 0.1 Absolute Nucleated RBC 0.02 Neutrophils % 80 Band Neutrophils % 10 H Lymphocytes % 1 L Monocytes % 7 Metamyelocytes % 2 Nucleated RBC % 0.1 Normal RBC Morphology Normal INR (Anticoag Therapy) 1.32 H APTT ABG pH ABG pCO2 ABG pO2 ABG HCO3 ABG O2 Saturation ABG Base Excess Sodium 126 L Potassium 4.3 Chloride 90 L Carbon Dioxide 15 L Anion Gap 21 H BUN 59 H Creatinine 4.60 H Est GFR ( Amer) 12.4 Est GFR (Non-Af Amer) 9.6 BUN/Creatinine Ratio 12.8 Glucose 146 H POC Glucose (mg/dL) Lactic Acid Calcium 9.4 Total Bilirubin 0.40 AST 22 ALT 8 Alkaline Phosphatase 61 Troponin I C-Reactive Protein 380.93 H Total Protein 6.1 L Albumin 3.1 L Globulin 3.0 Albumin/Globulin Ratio 1.0 Amylase 24 L Lipase 17 Urine Color Urine Appearance Urine pH Ur Specific Delta Urine Protein Urine Ketones Urine Blood Urine Nitrate Urine Bilirubin Urine Urobilinogen Ur Leukocyte Esterase Urine WBC (Auto) Urine RBC (Auto) Ur Squamous Epith Cells Urine Bacteria Hyaline Casts Urine Glucose 06/09/17 06/09/17 06/09/17 17:45 20:10 20:51 WBC RBC Hgb Hct MCV MCH MCHC RDW Plt Count MPV Immature Gran % (Auto) Neut % (Auto) Lymph % (Auto) [place] % (Auto) Eos % (Auto) Baso % (Auto) Absolute Neuts (auto) Absolute Lymphs (auto) Absolute Monos (auto) Absolute Eos (auto) Absolute Basos (auto) Absolute Nucleated RBC Neutrophils % Band Neutrophils % Lymphocytes % Monocytes % Metamyelocytes % Nucleated RBC % Normal RBC Morphology INR (Anticoag Therapy) APTT 31.0 ABG pH 7.26 L ABG pCO2 32 L ABG pO2 63 L ABG HCO3 15.8 L ABG O2 Saturation 93.7 L ABG Base Excess -11.5 L Sodium Potassium Chloride Carbon Dioxide Anion Gap BUN Creatinine Est GFR ( Amer) Est GFR (Non-Af Amer) BUN/Creatinine Ratio Glucose POC Glucose (mg/dL) Lactic Acid 5.0 H* Calcium Total Bilirubin AST ALT Alkaline Phosphatase Troponin I C-Reactive Protein Total Protein Albumin Globulin Albumin/Globulin Ratio Amylase Lipase Urine Color Urine Appearance Urine pH Ur Specific Delta Urine Protein Urine Ketones Urine Blood Urine Nitrate Urine Bilirubin Urine Urobilinogen Ur Leukocyte Esterase Urine WBC (Auto) Urine RBC (Auto) Ur Squamous Epith Cells Urine Bacteria Hyaline Casts Urine Glucose 06/10/17 06/10/17 06/10/17 01:25 01:25 02:45 WBC RBC Hgb Hct MCV MCH MCHC RDW Plt Count MPV Immature Gran % (Auto) Neut % (Auto) Lymph % (Auto) [place] % (Auto) Eos % (Auto) Baso % (Auto) Absolute Neuts (auto) Absolute Lymphs (auto) Absolute Monos (auto) Absolute Eos (auto) Absolute Basos (auto) Absolute Nucleated RBC Neutrophils % Band Neutrophils % Lymphocytes % Monocytes % Metamyelocytes % Nucleated RBC % Normal RBC Morphology INR (Anticoag Therapy) APTT ABG pH ABG pCO2 ABG pO2 ABG HCO3 ABG O2 Saturation ABG Base Excess Sodium Potassium Chloride Carbon Dioxide Anion Gap BUN Creatinine Est GFR ( Amer) Est GFR (Non-Af Amer) BUN/Creatinine Ratio Glucose POC Glucose (mg/dL) Lactic Acid 3.4 H* Calcium Total Bilirubin AST ALT Alkaline Phosphatase Troponin I 0.03 C-Reactive Protein Total Protein Albumin Globulin Albumin/Globulin Ratio Amylase Lipase Urine Color Rowena Urine Appearance Cloudy Urine pH 5.0 Ur Specific Delta 1.021 Urine Protein 1+(30 mg/dl) H Urine Ketones Negative Urine Blood 1+ H Urine Nitrate Negative Urine Bilirubin 1+ H Urine Urobilinogen Negative Ur Leukocyte Esterase Trace H Urine WBC (Auto) Trace(0-5/hpf) Urine RBC (Auto) Trace(0-2/hpf) Ur Squamous Epith Cells Present H Urine Bacteria Absent Hyaline Casts Present H Urine Glucose 1+(50 mg/dl) H 06/10/17 06/10/17 06/10/17 05:22 05:22 07:53 WBC 39.7 H RBC 4.95 Hgb 14.2 Hct 43 MCV 86 MCH 29 MCHC 33 RDW 13 Plt Count 575 H MPV 7 L Immature Gran % (Auto) 1 Neut % (Auto) Lymph % (Auto) [place] % (Auto) Eos % (Auto) Baso % (Auto) Absolute Neuts (auto) 35.3 H Absolute Lymphs (auto) 1.3 Absolute Monos (auto) 3.0 H Absolute Eos (auto) 0 Absolute Basos (auto) 0.1 Absolute Nucleated RBC 0.05 Neutrophils % 88 H Band Neutrophils % 1 Lymphocytes % 3 L Monocytes % 8 Metamyelocytes % Nucleated RBC % Normal RBC Morphology Not Reportable INR (Anticoag Therapy) APTT ABG pH ABG pCO2 ABG pO2 ABG HCO3 ABG O2 Saturation ABG Base Excess Sodium 129 L Potassium 4.6 Chloride 98 L Carbon Dioxide 13 L* Anion Gap 18 H BUN 61 H Creatinine 4.55 H Est GFR ( Amer) 12.5 Est GFR (Non-Af Amer) 9.7 BUN/Creatinine Ratio 13.4 Glucose 128 H POC Glucose (mg/dL) 119 H Lactic Acid Calcium 8.4 L Total Bilirubin AST ALT Alkaline Phosphatase Troponin I C-Reactive Protein Total Protein Albumin Globulin Albumin/Globulin Ratio Amylase Lipase Urine Color Urine Appearance Urine pH Ur Specific Delta Urine Protein Urine Ketones Urine Blood Urine Nitrate Urine Bilirubin Urine Urobilinogen Ur Leukocyte Esterase Urine WBC (Auto) Urine RBC (Auto) Ur Squamous Epith Cells Urine Bacteria Hyaline Casts Urine Glucose Assessment: []62 year old female with likely ovarian or uterine cancer with diffuse omental disease who now presents with ARF and respiratory compromise. This is an acute decompensation in setting of an aggressive appearing cancer with poor prognostic factors of leukocytosis and poor PS. Differential for ARF is pre- renal, pre-renal with conversion to ATN, ATN secondary to malignancy (uric acid) , I do not see extensive retroperitoneal disease or hydronephrosis. Her prognosis is very poor, there are no options for systemic treatment for her cancer in setting of renal failure. Discussed the severity of the situation with the patient and she understands she "may be near the end". She wants her niece, Tomeka Lu, to be her proxy ( Cell: [phone], home: [phone]). Stituation discussed with Tomeka and she accepts being health care proxy and understands that her aunt may very soon. Plan: []1. Renal failure. Management with ICU team. Will work to support kidneys. I do not recommend HD given prognosis from her malignancy. - Check Uric Acid 2. SOB. Respiratory support with Vapotherm. She would want to be intubated at this time, understands she may need care withdrawal. Differential for SOB: pressure from abd, renal acidosis, could have thrombosis. - check LE US, heparin if positive. 3. Niece is coming this am and understands she needs to become legal health care proxy and understand wishes of her aunt if conditions worsens. Niece will call the siblings and tell them to come into town. 4. She will not be able to care for mother under any scenario. Will need to contact social work on Monday. 5. Pathology will result on Monday. time with patient and chart 75 min.
--- NOTE | 2017-06-10 12:16 | CONS ---
CRITICAL CARE CONSULTATION: DATE OF CONSULT: 06/10/17 HISTORY OF PRESENT ILLNESS: This patient is a 62-year-old white female who was admitted yesterday with a large pelvic mass associated with renal insufficiency , lactic acidosis, ascites, pleural effusion, and hypoxemia. The mass was recently biopsied and results are pending. 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 PAST MEDICAL HISTORY: Significant for hypertension (not treated), hyperlipidemia, and asthma as a child. OUTPATIENT MEDICATIONS: 1. Albuterol inhaler p.r.n. 2. Ondansetron 8 mg q.6 hours p.r.n. nausea. DRUG ALLERGIES: Include CIPROFLOXACIN and CODEINE, reaction not known. SOCIAL HISTORY: The patient lives with her elderly mother and denies tobacco use and drinks only rarely. REVIEW OF SYSTEMS: Noncontributory. PHYSICAL EXAM: The patient appeared anxious and was tachypneic. Vital Signs: Temp 97.5, blood pressure 130/70, heart rate 105, respirations 24, O2 sat 96% on 100% oxygen by nasal prongs at 10 L per minute. HEENT: Oropharynx clear. Neck: Supple. No masses or jugular venous distention. Lungs: No adventitious sounds. Cardiac: No murmurs, rubs, or gallops. Abdomen: Distended and nontender. No fluid waves. Extremities: 1+ edema in the lower extremities, no cyanosis. DIAGNOSTIC STUDIES/LAB DATA: Admission labs significant for a white count of 35.4, hemoglobin 16.5, 10% band neutrophils, platelet count of 619,000. Sodium 126, bicarb 15, anion gap 21, BUN 59, creatinine 4.6. C-reactive protein 380, albumin 3.1. Lactic acid 5.0. Amylase and lipase were normal as were the liver enzymes. Chest x-ray revealed clear lungs with bilateral pleural effusions more prominent on the left than the right. EKG showed a sinus tachycardia with a rate of above 100, without acute ST or T-wave changes. 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 Other problems include hypoxia, renal insufficiency, and lactic acidosis. It is possible that the renal failure is at least partly prerenal in origin. Lactic acidosis may be related to the tumor. Hypoxia could represent pulmonary emboli. Despite the leukocytosis and elevated lactate, I think sepsis is unlikely in this patient. MANAGEMENT PLAN: We will hydrate in an attempt to improve renal function. We will also order an ultrasound of the veins in the legs to rule out venous thromboembolism (cannot perform CTA of chest because of renal failure). The chances of receiving chemotherapy seems slim at this point, but will be determined by the identity of the neoplasm and the likelihood of improvement in renal function. Overall prognosis seems poor at this point. I have discussed this case with Dr. Heriberto Reed and we are both in agreement with the management plan as outlined. CRITICAL CARE TIME: 60 minutes. [id number]/[facility] #: [id number] MTDD
[2017-06-10] MEDS: PROCHLORPERAZINE INJ 5 MG/ML 2 ML VIAL IV PRN (12:54)
[2017-06-10] MEDS ORDERED: fentaNYL* 50 MCG/ML 5 ML VIAL (250 MCG VIAL) ONE (13:42)
[2017-06-10] MEDS ORDERED: Etomidate* 2 MG/ML 20 ML VIAL (40 MG) ONE (13:42)
[2017-06-10] MEDS ORDERED: Propofol* 100 ML ONE (13:44)
[2017-06-10] MEDS ORDERED: Norepinephrine 16MCG/ML IVPRE* 4,000 MCG/250 ML BAG IV ONE (14:02)
--- NOTE | 2017-06-10 14:31 | RAD ---
INDICATION: Status post intubation. COMPARISON: Comparison is made with a prior chest x-ray study from June 09, 2017. TECHNIQUE: A portable view of the chest was obtained. FINDINGS: There is an endotracheal tube which projects over the midline. The catheter tip is located approximately 2 cm above the jina. There is an orogastric tube which demonstrates normal course. The heart is within normal limits in size. There is mild prominence of the interstitial markings and scattered bilateral patchy infiltrates suggestive of pneumonia. There is suggestion of trace bilateral pleural effusions. IMPRESSION: 1. STATUS POST INTUBATION AND OROGASTRIC TUBE PLACEMENT. 2. BILATERAL INFILTRATES.
--- NOTE | 2017-06-10 15:21 | RAD ---
INDICATION: Central line placement. COMPARISON: Comparison is made with prior chest x-ray study of the same date from 1400 hours. TECHNIQUE: A portable view of the chest was obtained. FINDINGS: The patient is status post intubation and orogastric tube placement. There is a central venous catheter entering from the right jugular approach. The catheter tip projects over the region of the right atrium. The heart is within normal limits in size. There are diffuse bilateral interstitial and alveolar infiltrates which appear unchanged. No pneumothorax is seen. IMPRESSION: 1. STATUS POST CENTRAL VENOUS CATHETER PLACEMENT. 2. DIFFUSE BILATERAL INFILTRATES, UNCHANGED.
[2017-06-10] MEDS ORDERED: Propofol* 100 ML IV SCH (16:00)
[2017-06-10] MEDS ORDERED: Lidocaine 2% PF * 5 ML VIAL ONE (16:29)
[2017-06-10 16:55] VITALS: BP 77/41
--- NOTE | 2017-06-10 17:05 | PN ---
Progress Note - Progress Note Date of Service: 06/10/17 Note: Patient developed persistent vomiting (appeared bloody) and depressed mental status - was subsequently intubated and vomitus noited in upper airway during intubation. Post-intubation CXR showed bilateral infiltrates, consistent with aspiration. Patient then developed progressive hypotension, unresponsive to volume resuscitation, and requiring levophed. Patient also remained unresponsive without sedation, and displayed agonal respirations. This likely represents a terminal and irreversible situation - we are awaiting for family to make decision about DNR.
[2017-06-10] MEDS: Norepinephrine 16MCG/ML IVPRE* 4,000 MCG/250 ML BAG IV SCH ×2 (17:07→18:57)
[2017-06-10 17:59] LABS: Hematocrit 46 % (35-47); Hemoglobin 14.9 g/dl (12.0-16.0); Mean Corpuscular HGB Conc 32 g/dl (31-36); Mean Corpuscular Hemoglobin 29 pg (27-31); Mean Corpuscular Volume 91 fL (80-97); Mean Platelet Volume 7 um3 (7.4-10.4); Red Cell Distribution Width 14 % (10.5-15); White Blood Count 24.3 10^3/ul (3.5-10.8)
[2017-06-10 18:00] LABS: Add Diff/Slide Review? Manual Diff Added; Comments Flag Yes
[2017-06-10] MEDS ORDERED: Vancomycin(*) 750 MG in NS 0.9% 250 ML* 250 ML IVPB ONE (18:00)
[2017-06-10 18:11] LABS: BUN/Creatinine Ratio 12.7 (8-20); Calcium 8.2 mg/dL (8.6-10.3); EGFR African American 11.3 (>60); EGFR Non-African American 8.8 (>60)
[2017-06-10 18:29] LABS: Immature Granulocytes 2 % (0-9); Myelocytes % 1 % (0-1); Neutrophil % 91 % (38-83); Reactive Lymph % 2 % (0-6)
[2017-06-10 18:30] LABS: RBC Morphology Normal (Normal)
--- NOTE | 2017-06-10 18:47 | PRO ---
PROCEDURE REPORT: DATE OF PROCEDURE: 06/10/17 PROCEDURE: Emergency endotracheal intubation. INDICATION: This patient is a 62-year-old white female who was admitted with a large intraabdominal mass and renal failure, who developed increasing shortness of breath associated with persistent vomit ing of dark red blood. The vomiting was associated with probable aspiration and a deterioration of t he patient's mental status and because of this, the patient was intubated emergently. DESCRIPTION OF PROCEDURE: After pre-sedation with 200 mcg of fentanyl and 20 mg of etomidate, a size 7.5-Yakut endotracheal tube was inserted through the vocal cords under videoscopic control and adva nced to 23 cm. Placement in the trachea was confirmed by exhaled CO2 colorimetrically and a postproc edure chest x-ray showed the tip of the tube 2 cm above the main jina. The tube was subsequently w ithdrawn 2 more cm and resecured. The patient tolerated the procedure well and there were no apparen t complications. [id number]/[facility] #: [id number]
--- NOTE | 2017-06-10 20:03 | PRO ---
PROCEDURE NOTE: DATE OF PROCEDURE: 06/10/17 PROCEDURE: Insertion of a right internal jugular central venous catheter. DESCRIPTION OF PROCEDURE: This patient is a 62-year-old white female, who is admitted with a large p elvic mass and renal failure, who required emergency endotracheal intubation and subsequent to that d eveloped hypotension and had only one peripheral IV access. To establish IV access for sedation and vasopressors, a right internal jugular triple lumen central venous catheter was inserted under ultras ound guidance and the tip of the catheter was verified with a post-insertion chest x-ray. There were no apparent complications. [id number]/[facility] #: [id number]
--- NOTE | 2017-06-10 20:03 | PRO ---
PROCEDURE NOTE: DATE OF PROCEDURE: 06/10/17 PROCEDURE: Arterial catheter. INDICATIONS: This is a 62-year-old white female who was recently admitted with a large abdominal mas s and renal failure and has subsequently required intubation, mechanical ventilation, and pressors. Because of the vasopressor dependence, an arterial line was deemed necessary. DESCRIPTION OF PROCEDURE: A femoral arterial catheter was inserted without difficulty. The patient did not require sedation as she was comatose. There were no apparent complications. [id number]/[facility] #: [id number]
--- NOTE | 2017-06-10 20:59 | DS ---
Date of Admission: 06/09/2017 Date of Discharge: 06/10/2017 Discharge Diagnoses sepsis advanced pelvic cancer with abdominal carcinomatosis acute renal failure HPI Ms. Guerrero is a 62-year-old female with a recent presentation to the emergency room on 06/05/17 for generally feeling unwell with some nausea, vomiting, and lower abdominal pain. At that time she had a CT of the abdomen and pelvis which showed constellation of findings described as most concerning for gynecological malignancy, most likely ovarian with widespread ascites and omental caking. The patient did not want to be admitted to the hospital at that time. She had grossly abnormal labs with a white blood cell count of 29.1 , hemoglobin of 16.1, a platelet count of 647, a creatinine of 1.92, and a BUN of 42. Her CRP was 250.05. She opted to leave from the emergency room and was seen the following day by Dr. Brown from oncology. I refer you to his consultation note for complete details, but in brief he agreed that this is likely a pelvic malignancy and recommended that she go on for a CT-guided biopsy. This biopsy was performed on 06/07/17, the results are pending. Ms. Guerrero since then has continued to feel quite poorly. She has nausea, vomiting , and lower abdominal pain with generalized weakness. 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 Today, she had a repeat CT abdomen and pelvis which showed interval increase in the size of the bilateral pleural effusions and peritoneal ascites again with a partially cystic mass in the right abdomen and pelvis. Her labs had significantly worsened with a white blood cell count now of 35.4, hemoglobin 16.5, platelet count 619,000. She is hyponatremic with a sodium of 126. She is in acute renal failure with a creatinine to 4.60, BUN of 59, her lactic acid is 5.0. She is afebrile, she is mildly tachycardic with a heart rate running about 100, her blood pressure is stable running systolically about 140s to 160s. She has O2 saturation of 90% on room air, responded well to 2 L nasal cannula. Hospital Course Mrs Guerrero was admitted to the ICU for aggressive management. Unfortunately after adequate fluid resuscitation and antibiotics her acidosis had worsened and bicarbinate GTT was started. Earlier today she began to vomit blood and developed refractory hypotension, presumably from septic shock, requiring intubation. Her condition continued to decline rapidly while comfort was able to be maintained and she passed at 2138 on 06/10/2017. Discharge Exam Time for Discharge: >40 minutes, with >20 minutes discussing with family her course, findings, and obtaining a declination for autopsy
[2017-06-11] MEDS ORDERED: Vancomycin Random Level* NOTE FOLLOW UP ONE (06:00)
== END 2017-06-10 21:38 | disposition expired | DRG 720 ==
LOC: ED 16:56 → ICU 23:07
PROVIDERS: ADMIT Hospitalist; ATTEND Internal Medicine Hematology & Oncology
PROC: 04HK33Z Insertion of Infusion Device into Right Femoral Artery, Percutaneous Approach (ICD-10-PCS; principal; 2017-06-10)
PROC: 05HM33Z Insertion of Infusion Device into Right Internal Jugular Vein, Percutaneous Approach (ICD-10-PCS; 2017-06-10)
PROC: B543ZZA Ultrasonography of Right Jugular Veins, Guidance (ICD-10-PCS; 2017-06-10)
PROC: 0BH17EZ Insertion of Endotracheal Airway into Trachea, Via Natural or Artificial Opening (ICD-10-PCS; 2017-06-10)
PROC: 5A1935Z Respiratory Ventilation, Less than 24 Consecutive Hours (ICD-10-PCS; 2017-06-10)
DX: A41.9 Sepsis, unspecified organism (principal); N17.9 Acute kidney failure, unspecified; J90 Pleural effusion, not elsewhere classified; C78.6 Secondary malignant neoplasm of retroperitoneum and peritoneum; R18.8 Other ascites; C76.3 Malignant neoplasm of pelvis; I10 Essential (primary) hypertension; E78.5 Hyperlipidemia, unspecified; Z79.1 Long term (current) use of non-steroidal anti-inflammatories (NSAID); Z79.899 Other long term (current) drug therapy; Z88.1 Allergy status to other antibiotic agents; Z88.5 Allergy status to narcotic agent
CPT/HCPCS: 36415; 36600; 71010; 74176; 80048; 80053; 81003; 81015; 82150; 82803; 83605; 83690; 84484; 84550; 85025; 85060; 85610; 85730; 86140; 87040; 87086; 87641; 93005; 94002; 94760; J0780; J1644; J2270; J2405; J2543; J2704; J2765; J3010; J3370; J7060